=== PATIENT | female | born 1950 | race American Indian/Alaskan Native ===

== ENCOUNTER 2016-06-19 08:56 | Day surgery (SDC) | payer OTHER ==
[2016-06-19] MEDS ORDERED: NACL 0.9% 500 ML 500 ML IV SCH (10:00)
[2016-06-19 10:03] LABS: Basophils % (Auto) 0.6 % (0.0-1.8); Eosinophils % (Auto) 2.1 % (0.0-4.3); Hematocrit 43.4 % (30.3-42.9); Hemoglobin 14.3 gm/dl (10.1-14.3); Mean Corpuscular HGB Conc 33 % (30-34); Mean Corpuscular Hemoglobin 30 pg (28-32); Mean Corpuscular Volume 90 fl (79-97); Platelet Count 245 K/mm3 (140-440); Red Blood Count 4.83 M/mm3 (3.65-5.03); Red Cell Distribution Width 13.8 % (13.2-15.2); White Blood Count 6.4 K/mm3 (4.5-11.0)
[2016-06-19 10:13] LABS: INR 0.9 (0.87-1.13)
[2016-06-19] MEDS ORDERED: HEPARIN/NS 5000 UNIT/500ML(CATH LAB) 1,000 ML IR ONE (10:35)
[2016-06-19] MEDS ORDERED: ANCEF/STERILE WATER 2 GM/20 ML 0 GM/0 ML SYRINGE IV ONE (10:36)
[2016-06-19] MEDS: VERSED ONE ×2 (11:30→11:39)
[2016-06-19] MEDS: XYLOCAINE 2% INFILTRATI ONE ×2 (11:31→11:41)
[2016-06-19] MEDS: SUBLIMAZE ONE ×2 (11:31→11:39)
[2016-06-19] MEDS: CALAN ONE ×2 (11:32→11:42)
[2016-06-19] MEDS: HEPARIN 10,000 UNITS/10 ML ONE ×2 (11:32→11:42)
[2016-06-19 11:33] LABS: Anion Gap 18 mmol/L; Blood Urea Nitrogen 9 mg/dL (7-17); Calcium 9.4 mg/dL (8.4-10.2); Carbon Dioxide 23 mmol/L (22-30); Chloride 102.7 mmol/L (98-107); Glucose 242 mg/dL (65-100); Potassium 4.1 mmol/L (3.6-5.0); Sodium 140 mmol/L (137-145)
[2016-06-19] MEDS: NITROGLYCERIN SYRINGE 3 ML ONE ×2 (11:35→11:42)
--- NOTE | 2016-06-19 12:05 | Short Stay Summary ---
Short Stay Documentation Date of service: 06/19/16 - History H&P: obtained from office - Allergies and Medications Current Medications: Allergies No Known Allergies Allergy (Verified 06/19/16 09:17) Home Medications Medication Instructions Recorded Confirmed Last Taken Type Aspirin EC [Aspirin Enteric Coated 81 mg PO DAILY 06/19/16 06/19/16 06/19/16 06: 30 History TAB] Clopidogrel Bisulfate [Clopidogrel] 75 mg PO DAILY 06/19/16 06/19/16 06/19/16 06 :30 History Gabapentin [Gabapentin] 600 mg PO DAILY 06/19/16 06/19/16 06/19/16 06:30 History 600mg Active Medications Sodium Chloride (Nacl 0.9% 500 Ml) 500 mls @ 50 mls/hr IV DIRECT CARMINA Stop: 06/19/16 19:59 Last Admin: 06/19/16 10:34 Dose: 50 mls/hr - Brief post op/procedure progress note Date of procedure: 06/19/16 Pre-op diagnosis: PAD with claudication Procedure: peripheral angiogram - Hospital course Hospital course: Please see dictated peripheral angiogram report. - Disposition Condition at discharge: Stable Disposition: DISCHARGED TO HOME OR SELFCARE - Discharge Diagnoses (1) PVD (peripheral vascular disease) with claudication Status: Chronic Short Stay Discharge Plan Activity: advance as tolerated Weight Bearing Status: Weight Bear as Tolerated Diet: low fat, low cholesterol Wound: keep clean and dry Follow up with: LA NEWBERRY MD [Staff Physician] - 7 Days Forms: Work/School Excuse Out Patient
--- NOTE | 2016-06-19 12:19 | Cardiac Catherization Report ---
PERIPHERAL ANGIOGRAM CLINICAL INFORMATION: This is a 65-year-old -[place] female with claudication symptoms, right greater than left. Ultrasound shows moderate basic flow and a greater than 75% stenosis in the left SFA. The patient is on aspirin, recently started on Plavix, is here for peripheral angiogram. PERIPHERAL ANGIOGRAM: Procedure was performed via the right radial artery, sterile technique, local anesthesia, 5-Belizean radial sheath inserted. Pigtail catheter placed in the distal abdominal aorta and runoff was done which revealed: 1. Distal abdominal aorta patent. 2. Left common iliac patent. 3. Right common iliac diffuse disease 10-20%. 4. Bilateral external and internal iliacs patent and bilateral common femoral arteries and profunda patent. 5. Left SFA proximally, mid is patent, mid to distal diffuse 20-30%, and popliteal patent with 2-vessel runoff. The patient did move so below the knee vessels not well visualized. 6. Right SFA, mid to distal diffuse disease with focal area of 90% stenosis noted with 70-80% stenosis in the SFA with popliteal patent with 2-vessel runoff. 7. 5-Belizean catheter taken over a guidewire, 5-Belizean radial sheath was discontinued. Radial dressing applied. No hematoma. No bleeding. SUMMARY: 1. Significant peripheral vascular disease in the right SFA, in the distal focal 90% with diffuse disease proximal to it, around 70-80 and right common iliac around 20-30% disease, bilateral internal and external iliac patent. Left SFA is patent with distal around 30% with 2-vessel runoff. 2. The patient will continue aspirin, Plavix and schedule for CONTRACT OFFICER of the right SFA. JOB# [id number] PIETER/LAILA HENSON
[2016-06-19 14:05] VITALS: BP 138/81
== END 2016-06-19 14:30 | disposition home or self-care (01) ==
LOC: OPU 08:56
PROVIDERS: ATTEND Internal Medicine
DX: I70.212 Atherosclerosis of native arteries of extremities with intermittent claudication, left leg (principal); I10 Essential (primary) hypertension; Z79.01 Long term (current) use of anticoagulants; Z87.891 Personal history of nicotine dependence; Z82.49 Family history of ischemic heart disease and other diseases of the circulatory system
CPT/HCPCS: 36200; 36415; 75716; 80048; 85025; 85610; 85730; C1894; J1644; J2250; J3010; J7040; Q9967; J0690

== ENCOUNTER 2016-07-10 06:02 | Inpatient (IN) | payer MEDICARE, OTHER ==
[2016-07-10] MEDS ORDERED: NACL 0.9% 500 ML 500 ML IV SCH (07:00)
[2016-07-10 07:07] LABS: Basophils % (Auto) 0.5 % (0.0-1.8); Eosinophils % (Auto) 1.9 % (0.0-4.3); Hemoglobin 13.9 gm/dl (10.1-14.3); Mean Corpuscular HGB Conc 33 % (30-34); Mean Corpuscular Hemoglobin 30 pg (28-32); Mean Corpuscular Volume 89 fl (79-97); Platelet Count 234 K/mm3 (140-440); Red Cell Distribution Width 13.5 % (13.2-15.2); White Blood Count 6.1 K/mm3 (4.5-11.0)
[2016-07-10 07:18] LABS: Anion Gap 16 mmol/L; Blood Urea Nitrogen 8 mg/dL (7-17); Calcium 9.5 mg/dL (8.4-10.2); Carbon Dioxide 30 mmol/L (22-30); Chloride 102.7 mmol/L (98-107); Glucose 222 mg/dL (65-100); Potassium 4.4 mmol/L (3.6-5.0); Sodium 144 mmol/L (137-145)
[2016-07-10 07:26] LABS: INR 0.96 (0.87-1.13)
[2016-07-10] MEDS ORDERED: HEPARIN/NS 5000 UNIT/500ML(CATH LAB) 1,000 ML IR ONE (08:11)
[2016-07-10] MEDS ORDERED: HEPARIN 10,000 UNITS/10 ML ONE (08:11)
[2016-07-10] MEDS ORDERED: ANCEF/STERILE WATER 2 GM/20 ML 0 GM/0 ML SYRINGE IV ONE (08:12)
[2016-07-10] MEDS ORDERED: HEPARIN/NS 5000 UNIT/500ML(CATH LAB) 500 ML IR ONE (08:27)
[2016-07-10] MEDS ORDERED: NITROGLYCERIN SYRINGE 3 ML ONE (08:28)
[2016-07-10] MEDS: VERSED ONE ×2 (08:34→08:43)
[2016-07-10] MEDS: SUBLIMAZE ONE ×2 (08:34→08:43)
[2016-07-10] MEDS: XYLOCAINE 2% INFILTRATI ONE ×2 (08:35→08:46)
[2016-07-10] MEDS ORDERED: NACL 0.9% 0 ML ONE (08:50)
[2016-07-10] MEDS ORDERED: ANGIOMAX IV ONE ×2 (08:50→08:59)
[2016-07-10] MEDS ORDERED: NACL 0.9% 100 ML ONE (08:51)
[2016-07-10] MEDS ORDERED: PLAVIX ONE (09:33)
[2016-07-10] MEDS ORDERED: ALUM-MAG HYDROX-SIMETH 200-200-20MG/5ML ONE (09:33)
[2016-07-10] MEDS ORDERED: PLAVIX PO ONE (09:42)
[2016-07-10] MEDS ORDERED: ALUM-MAG HYDROX-SIMETH 200-200-20MG/5ML PO ONE (09:43)
[2016-07-10] MEDS ORDERED: NACL 0.9% 1000 ML 1,000 ML IV SCH (10:00)
--- NOTE | 2016-07-10 10:27 | Cardiac Catherization Report ---
PERIPHERAL ANGIOGRAM AND VIRGINIA LINE ATTENDANT REPORT CLINICAL INFORMATION: This is a 66-year-old -Wallisian female with known peripheral vascular disease, has a diffuse disease in the mid 50-60% with a focal lesion in the distal left SFA of 95% with single vessel runoff done on previous angiogram. The patient is on aspirin and Plavix to having claudication symptoms, here for VIRGINIA LINE ATTENDANT of the left SFA. PERIPHERAL ANGIOGRAM: Procedure was performed via the left common femoral artery, sterile technique, local anesthesia, 5-Sudanese groin sheath inserted. 1. Using a rim catheter and Advantage wire was able to successfully navigate from the left common femoral artery to the right SFA and then removed rim catheter and 5-Sudanese sheath and placed a 7-Sudanese destination from the left common femoral artery to the right common femoral artery. 2. Peripheral angiogram showed proximal patent mid diffuse 50-60% with distal focal 95% with popliteal patent. Anterior tibial is 100% proximal. TP trunk is a 50% lesion and peroneal was patent, but posterior tibial is occluded mid and you see extensive collateralization by the dp . 3. Cross the lesion with a ChoICE PT 300 cm wire. 4. Used a distal protection device EV3 SpiderFX 5.0 device. 5. Predilated distal SFA lesion with 3.0 x 20mm balloon. 6. Then used atherectomy device [employer] LS, did 10 passes from the proximal laid proximal to early distal part of the left SFA. 7. Good angiographic result. 8. Used a drug-coating balloon Admiral 4.0 x 150 mm inflated at 8 atmospheres for 3-4 minutes. 9. Repeat angiogram showed excellent angiographic result. No dissections, no embolization noted. 10. Distal protection device was removed with retrieval device. 11. Angiogram showed improved flow down the leg with reduced stenosis from 95% to less than 10% with single vessel runoff of the peroneal anterior tibial and posterior tibial 100%. 12. A 7-Sudanese destination sheath removed over wire, 7-Sudanese short sheath was sewn in. No hematoma. No bleeding. SUMMARY: 1. Successful VIRGINIA LINE ATTENDANT of the left SFA from proximal and distal with an atherectomy [place] LS with a distal protection device, 5.0EV3 and used a drug-coated balloon Admiral 4.0 x 150 with excellent angiographic result with single vessel runoff. 2. Post-VIRGINIA LINE ATTENDANT care discussed this in detail with the patient and the patient's family. JOB# [id number] PIETER/LAILA HENSON
[2016-07-10] MEDS: BABY ASPIRIN PO SCH (13:39)
[2016-07-10] MEDS: ULTRAM PO PRN ×2 (15:36→22:09)
--- NOTE | 2016-07-10 15:52 | Admit Criteria Form ---
Admission Criteria Documentation: TELEMETRY CARE Telemetry Admission Guidelines (Place 'X' for any and all applicable criteria): Admission to telemetry [A] may be indicated for ANY ONE of the following(1)(2)(3 )(4)(5): [ ]I. Cardiac disease, including ANY ONE of the following (9)(10)(11)(12)(13 ): [ ]a) Postacute IN [ ]b) Low-risk patients with ST-segment elevation IN who have undergone successful percutaneous coronary intervention [ ]c) Unstable angina [ ]d) Suspected IN (until it is ruled out) [ ]e) Post cardiac surgery (first 48 to 72 hours unless complications occur) [ ]f) Acute arrhythmias (including significant tachycardia or bradycardia) [B] [ ]g) Firing of an implantable cardioverter defibrillator [C] [ ]h) Suspected pacemaker or implantable cardioverter defibrillator malfunction (10) [ ]i) New administration or adjustment of an antiarrhythmic drug [D ] [ ]j) Child admitted for acute congestive heart failure [ ]j) Long QT syndrome [ ]k) Advanced heart block (eg, second-degree Mobitz type II, third- degree heart block) [ ]l) Acute myocarditis or pericarditis [ ]m) Short-term (ambulatory or inpatient) monitoring after a cardiac procedure as indicated by ANY ONE of the following [E]: [ ]i) Electrophysiologic studies [ ]ii) Percutaneous coronary intervention with stent placement [ ]iii) Pacemaker placement with cardiac conduction defect [ ]iv) Implantable cardiac defibrillator placement [ ]II. Drug overdose or poisoning with substance that causes arrhythmias or QT prolongation (eg, phenothiazines, sympathomimetic agents, cyclic antidepressants, digitalis, antiarrhythmic drugs)(15) [ X]III. Short-term (ambulatory or inpatient) monitoring after therapeutic or diagnostic procedure requiring conscious sedation or anesthesia (eg, endoscopy, elective cardioversion) [ ]IV. Acute cerebrovascular even[F](18) [ ]V. Massive blood transfusion (eg, at least 10 units of packed red blood cells in 24 hours) [ ]. Variceal bleeding after endoscopy, sclerotherapy, or IV vasopressin [ ]VII. Uncorrected electrolyte abnormalities associated with an increased risk of dangerous arrhythmia [G]; examples include [ ]a) Hyperkalemia with attributable ECG changes [ ]b) Potassium greater than 6.5 mmol/L (mEq/L) in a patient without history of chronic renal disease [ ]c) Prolonged QT attributed to hypokalemia, hypomagnesemia, or hypocalcemia [ ]VIII.Unexplained syncope or other neurologic event suspected of being due to arrhythmia due to a finding that increases risk; examples include(19)(20)(21): [ ]a) High-risk ECG findings (eg, bifascicular block, bradycardia, abnormal QT interval, ventricular pre- excitation) [ ]b) History of previous syncope due to arrhythmia [ ]c) Abnormal ventricular function (eg, reduced ejection fraction ) [ ]d) Exertional or supine syncope [ ]e) Concerning syncope characteristics (eg, sudden loss of consciousness without prodrome) [ ]f) Family history of sudden [ ]g) Use of arrhythmogenic medication [ ]h) Suspected cardiac ischemia [ ]i) Known channelopathy (eg, long QT syndrome, Brugada syndrome, or catecholaminergic paroxysmal ventricular tachycardia) [ ]j) Known structural heart disease (eg, hypertrophic cardiomyopathy , severe valvular disease) [ ]k) Palpitations preceding syncope The original [employer] content created by [employer] has been revised. The portions of the content which have been revised are identified through the use of italic text or in bold, and [employer] has neither reviewed nor approved the modified material. All other unmodified content is copyright [employer]. Please see references footnoted in the original [employer] edition 2016 Admission Criteria Met: Yes
[2016-07-11 05:49] LABS: Basophils % (Auto) 0.4 % (0.0-1.8); Hematocrit 38.3 % (30.3-42.9); Hemoglobin 12.5 gm/dl (10.1-14.3); Mean Corpuscular HGB Conc 33 % (30-34); Mean Corpuscular Hemoglobin 30 pg (28-32); Mean Corpuscular Volume 91 fl (79-97); Platelet Count 229 K/mm3 (140-440); Red Blood Count 4.23 M/mm3 (3.65-5.03); Red Cell Distribution Width 13.6 % (13.2-15.2); White Blood Count 6.7 K/mm3 (4.5-11.0)
[2016-07-11 06:07] LABS: Anion Gap 16 mmol/L; Blood Urea Nitrogen 9 mg/dL (7-17); Calcium 8.8 mg/dL (8.4-10.2); Carbon Dioxide 25 mmol/L (22-30); Chloride 101.3 mmol/L (98-107); Glucose 207 mg/dL (65-100); Potassium 3.9 mmol/L (3.6-5.0); Sodium 138 mmol/L (137-145)
--- NOTE | 2016-07-11 09:27 | Short Stay Summary ---
Short Stay Documentation Date of service: 07/11/16 Narrative H&P: H&P obtained from office - Allergies and Medications Current Medications: Allergies No Known Allergies Allergy (Verified 06/19/16 09:17) Home Medications Medication Instructions Recorded Confirmed Last Taken Type Aspirin EC [Aspirin Enteric Coated 81 mg PO DAILY 06/19/16 07/10/16 07/10/16 History TAB] Clopidogrel Bisulfate [Clopidogrel] 75 mg PO DAILY 06/19/16 07/10/16 07/10/16 History Gabapentin [Gabapentin] 600 mg PO DAILY 06/19/16 07/10/16 07/10/16 History 600mg Active Medications Aspirin (Baby Aspirin) 81 mg PO QDAY [facility] Last Admin: 07/10/16 13:39 Dose: Not Given Atorvastatin Calcium (Lipitor) 40 mg PO QHS [facility] Last Admin: 07/10/16 22:09 Dose: 40 mg Clopidogrel Bisulfate (Plavix) 75 mg PO QDAY [facility] Tramadol HCl (Ultram) 50 mg PO Q4H PRN PRN Reason: Pain, Mild (1-3) Last Admin: 07/10/16 22:09 Dose: 50 mg - Physical exam General appearance: no acute distress Integumentary: no rash, no growths, no abnormal pigmentation HEENT: Atraumatic Lungs: Clear to auscultation Heart: Regular rate, Normal S1, Normal S2 Gastrointestinal: normal, normoactive bowel sounds Extremities: no ischemia, pulses intact, pulses symmetrical, No edema, normal temperature, normal color, Full ROM Neurological: Normal gait, Normal speech, Strength at 5/5 X4 ext - Brief post op/procedure progress note Date of procedure: 07/10/16 Pre-op diagnosis: PVD Post-op diagnosis: same Procedure: FIELD NATURALIST of left SFA - Hospital course Hospital course: The patient is a 66YO female with a past medical history significant for PVD and HTN. She presented on 07/10/2016 for scheduled FIELD NATURALIST of left SFA. She successfully underwent FIELD NATURALIST of left SFA per left femoral artery by Dr. Dong and was admitted for overnight observation. She remained clinically and hemodynamically stable throughout the procedure and recovery and is cleared for discharge home today. - Disposition Condition at discharge: Stable Disposition: DISCHARGED TO HOME OR SELFCARE - Discharge Diagnoses (1) PVD (peripheral vascular disease) with claudication Status: Chronic Short Stay Discharge Plan Activity: advance as tolerated Weight Bearing Status: Full Weight Bearing Diet: low fat, low cholesterol, low salt Wound: open to air, keep clean and dry Follow up with: LA DONG MD [Staff Physician] - 7 Days (07/20/2016 @ 3:30PM in [facility]) Prescriptions: traMADol [Ultram 50 MG tab] 50 mg PO Q6H PRN #10 tablet PRN Reason: Pain, Mild (1-3)
[2016-07-11 09:46] VITALS: BP 157/90
[2016-07-11] MEDS ORDERED: PLAVIX PO SCH (10:00)
[2016-07-11] MEDS: BABY ASPIRIN PO SCH (10:04)
[2016-07-11] MEDS: ULTRAM PO PRN (10:04)
== END 2016-07-11 11:00 | disposition home or self-care (01) | DRG 272 ==
LOC: OPU 06:02 → 4A 09:50
PROVIDERS: ADMIT Internal Medicine; ATTEND Internal Medicine
PROC: 047L3Z1 Dilation of Left Femoral Artery using Drug-Coated Balloon, Percutaneous Approach (ICD-10-PCS; principal; 2016-07-10)
PROC: 04CL3ZZ Extirpation of Matter from Left Femoral Artery, Percutaneous Approach (ICD-10-PCS; 2016-07-10)
DX: I70.213 Atherosclerosis of native arteries of extremities with intermittent claudication, bilateral legs (principal); I10 Essential (primary) hypertension; E78.2 Mixed hyperlipidemia; Z90.49 Acquired absence of other specified parts of digestive tract; Z82.49 Family history of ischemic heart disease and other diseases of the circulatory system
CPT/HCPCS: 36415; 37225; 80048; 85025; 85347; 85610; 85730; A9270-GY; C1725; C1769; C1884; J0583; J0690; J1644; J2250; J3010; J7030; J7040; Q9967

== ENCOUNTER 2017-04-04 07:05 | Outpatient (CLI) | payer BC, MEDICARE, OTHER ==
--- NOTE | 2017-04-05 08:25 | PET Report ---
PET SB TO MT INITIAL: HISTORY: Initial staging of breast cancer. TECHNIQUE: 13.7 millicuries F-18 FDG was administered intravenously. Noncontrast CT images and PET images were obtained from the skull base to the proximal thighs. Fused images were reviewed on a workstation. The patient's blood glucose level measured 99. COMPARISON: No relevant comparison at this facility. FINDINGS: BRAIN: physiologic FDG uptake in the imaged brain. NECK: physiologic FDG uptake. CHEST WALL: There are surgical biopsy clips in the lateral right breast. No abnormal uptake in the breast tissues or axillary changes are appreciated. MEDIASTINUM: There are multiple suspicious and mildly hypermetabolic lymph nodes in the mediastinum. A 1.6 cm aortopulmonary window lymph node demonstrates a max SUV of 3.3. A 1.4 cm pretracheal lymph node demonstrates a max SUV is 2.9. A 1.9 cm paraesophageal lymph node demonstrates a max SUV of 7.1. There is indistinct soft tissue density in the anterior mediastinum in the expected position of the thymus measuring 3.3 x 1.8 cm and demonstrates a max SUV of 7.0. LUNGS: Multiple bilateral small pulmonary nodules are identified. Most of these nodules measure less than 1 cm in diameter. One of the largest nodule is in the left lower lobe measures 1.5 cm and demonstrates a max SUV of 4.4. One of the largest nodules in the right lung is pleural-based in the anterior right middle lobe measuring 1.2 cm in dimension at a max SUV of 4.4. A small layering right pleural effusion measures up to 1 cm in thickness. Based on the location and small size of these nodules, CT-guided biopsy is not recommended. PLEURA/PERICARDIUM: physiologic FDG uptake. HEPATOBILIARY: physiologic FDG uptake. Mean liver SUV measures 2.6. PANCREAS: physiologic FDG uptake. SPLEEN: physiologic FDG uptake. ADRENAL GLANDS: physiologic FDG uptake. KIDNEYS/RENAL COLLECTING SYSTEMS: physiologic FDG uptake. BOWEL/MESENTERY: physiologic FDG uptake. PELVIC VISCERA: physiologic FDG uptake. Moderate uterine fibroid disease is noted ABDOMINAL/PELVIC LYMPH NODES: physiologic FDG uptake. MUSCULOSKELETAL: There is a solitary area of abnormal bony uptake in the left sacral ala with max SUV measuring 5.7. No obvious bony lesion is identified on the CT bone windows. IMPRESSION: No discrete breast mass is detected. Abnormal PET activity is identified in multiple mediastinal lymph nodes, multiple bilateral pulmonary nodules, and a solitary bone lesion in the left sacrum. Small right pleural effusion is identified and may represent early right pleural involvement.
== END 2017-04-04 07:06 | disposition home or self-care (01) ==
LOC: PET 07:05
PROVIDERS: ATTEND Internal Medicine Critical Care Medicine
DX: C50.911 Malignant neoplasm of unspecified site of right female breast (principal); R91.8 Other nonspecific abnormal finding of lung field; J90 Pleural effusion, not elsewhere classified; D25.9 Leiomyoma of uterus, unspecified; Z79.899 Other long term (current) drug therapy
CPT/HCPCS: 78815; 82962; A9552

== ENCOUNTER 2017-09-19 08:01 | Outpatient (CLI) | payer BC, MEDICARE, OTHER ==
--- NOTE | 2017-09-20 11:28 | PET Report ---
PET/CT:09/19/17 08:01:00 CLINICAL: Breast cancer restaging. RADIOPHARMACEUTICAL: 11.45mCi F18-FDG. COMPARISON: 04/04/17 PET/CT TECHNIQUE- Following intravenous injection of F-18 FDG and an approximately 60 minute uptake period, CT and PET images from the mid skull to the upper thighs were acquired with the patient in the fasted state. No contrast was administered. The CT protocol used for this PET CT study is designed for attenuation correction and anatomic localization of PET abnormalities. This companion caregiver CT is not desired to produce and cannot replace, glojz-eg-oxj-art diagnostic CT scans with specific imaging protocols for different body parts and indications. Plasma glucose at the time of this test: 87g/dl. The standardized uptake values (SUV) are normalized to patient body weight and indicate the highest activity concentration (SUV max) in a given disease site. FINDINGS: Brain--Physiologic FDG uptake in the visualized regions of the brain. Neck--Physiologic FDG uptake . Chest--Physiologic FDG uptake in mediastinal blood pool and myocardium. Lungs--Too numerous to count bilateral multilobar FDG avid lung nodules with an increase number and size compared to last exam. A 1.3-1.0 cm right upper lobe lung nodule is the most FDG avid the 7.3. The largest nodule is in the left lower lobe and measures 1.5 x 1.5 cm with a CBD 4.3. Pleura/pericardium--New FDG avid irregular pleural thickening of the right upper lobe with SUV 5.3 and a band of thickened FDG at the pleural in the right lower lobe with SUV 8.3. A small right pleural effusion. Thoracic nodes--The previously described anterior mediastinal mass measures approximately 3 x 2 cm. It is unchanged in size but FDG uptake is reduced with an SUV of 5.4 compared to 7.0. The previously described FDG avid paraesophageal lymph node at the level of the diaphragm has less distinct margins within SUV of 6.82 compared to 7.1. Hepatobiliary--No abnormal uptake. Liver background SUV mean, as a reference for comparing FDG studies, is 2.6 compared to 2.5 on the last exam. No liver mass. Spleen--No abnormal uptake. Pancreas--No abnormal uptake. Adrenal Glands--No abnormal uptake. Kidneys/Ureters/Bladder--No abnormal uptake. Abdominopelvic Nodes--No abnormal uptake. Bowel/Peritoneum/Mesentery--No abnormal uptake. Pelvic organs--No abnormal uptake. Bones/Soft Tissues--The previously described FDG avid left sacral lesion is not identified on the CT. It has an SUV of 7.5 compared to 5.7. Relatively uniform intense FDG uptake throughout the bone marrow of the spine. No new bone lesions. IMPRESSION- 1. Progressive disease with worsened pulmonary metastasis and new right pleural metastasis. 2. Slightly increased FDG uptake in the left sacral lesion and no new bone lesions. Uniform benign marrow uptake in the spine. 3. No evidence of hepatic metastasis.
== END 2017-09-19 08:02 | disposition home or self-care (01) ==
LOC: PET 08:01
PROVIDERS: ATTEND Internal Medicine Hematology & Oncology
DX: C50.311 Malignant neoplasm of lower-inner quadrant of right female breast (principal); G62.0 Drug-induced polyneuropathy; R73.9 Hyperglycemia, unspecified; E86.0 Dehydration; M25.559 Pain in unspecified hip; R91.1 Solitary pulmonary nodule; J92.9 Pleural plaque without asbestos; J90 Pleural effusion, not elsewhere classified; C78.2 Secondary malignant neoplasm of pleura; I10 Essential (primary) hypertension; M19.90 Unspecified osteoarthritis, unspecified site; I73.9 Peripheral vascular disease, unspecified; Z90.49 Acquired absence of other specified parts of digestive tract
CPT/HCPCS: 78815; 82962; A9552

== ENCOUNTER 2018-06-12 08:16 | Outpatient (CLI) | payer BC, MEDICARE, OTHER ==
--- NOTE | 2018-06-13 08:50 | PET Report ---
PET/CT:06/12/18 08:16:00 CLINICAL: Rest cancer restaging RADIOPHARMACEUTICAL: 12.264mCi F18-FDG. COMPARISON: 01/30/18 PET/CT TECHNIQUE- Following intravenous injection of F-18 FDG and an approximately 60 minute uptake period, CT and PET images from the mid skull to the upper thighs were acquired with the patient in the fasted state. No contrast was administered. The CT protocol used for this PET CT study is designed for attenuation correction and anatomic localization of PET abnormalities. This project development director CT is not desired to produce and cannot replace, svqoi-[id number]-hlw-art diagnostic CT scans with specific imaging protocols for different body parts and indications. Plasma glucose at the time of this test: 92g/dl. The standardized uptake values (SUV) are normalized to patient body weight and indicate the highest activity concentration (SUV max) in a given disease site. FINDINGS: Brain--Physiologic FDG uptake in the visualized regions of the brain. Neck--Physiologic FDG uptake in mucosal structures. No mass or lymphadenopathy. Chest--Physiologic FDG uptake in mediastinal blood pool and myocardium. Lungs--Bilateral too numerous to count pulmonary nodules are increased in size and number and previously identified nodules have increased FDG uptake. The previously described right upper lobe nodule adjacent to the anterior pleura measures 1.1 x 1.1 cm with SUV 12.7 compared to 1.2 x 1.0 cm and SUV 7.6. A left lower lobe nodule measures 1.9 x 1.2 cm with SUV 7.6 compared to 1.8 x 1.7 cm and SUV 1.9. Pleura/pericardium--Extensive right pleural thickening with new pronounced FDG uptake and SUV 13.8. Thoracic nodes--FDG avid right hilar lymph node with SUV 9.8 compared to 4.4. The previously described right paracaval and paraesophageal mass is increased in size with SUV 12.3 compared to 9.1. Hepatobiliary--At least 5 new FDG avid hypodense hepatic masses. An anterior left hepatic mass with SUV 10.9. Liver background SUV mean, as a reference for comparing FDG studies, is 4.8 compared to 2.2 on the last exam. Spleen--No abnormal uptake. Pancreas--No abnormal uptake. Adrenal Glands--New FDG uptake in the right adrenal gland this should be 6.5. Normal left adrenal. Kidneys/Ureters/Bladder--No abnormal uptake. Abdominopelvic Nodes--No abnormal uptake. Bowel/Peritoneum/Mesentery--No abnormal uptake. Pelvic organs--No abnormal uptake. Bones/Soft Tissues--Multiple new FDG avid bone lesions involving the thoracic and lumbar spine, pelvis and sacrum. However, the CT bone findings are not significantly changed compared to the last exam. The previously described left sacral lesion with SUV 8.6 compared to 4.3. Right sacral and bilateral iliac lesions. FDG avid T3 vertebral body lesion with SUV 7.7. IMPRESSION- Progression of disease with increased FDG avid pulmonary, paulino and skeletal metastases and new hepatic and right adrenal metastases.
== END 2018-06-12 08:17 | disposition home or self-care (01) ==
LOC: PET 08:16
PROVIDERS: ATTEND Internal Medicine Hematology & Oncology
DX: C79.71 Secondary malignant neoplasm of right adrenal gland (principal); C79.51 Secondary malignant neoplasm of bone; C50.311 Malignant neoplasm of lower-inner quadrant of right female breast; I10 Essential (primary) hypertension; M19.90 Unspecified osteoarthritis, unspecified site; Z90.49 Acquired absence of other specified parts of digestive tract; Z87.891 Personal history of nicotine dependence
CPT/HCPCS: 78815; 82962; A9552